=== PATIENT | female | born 1975 | race Two or more races ===

== ENCOUNTER 2025-06-21 09:55 | Inpatient (IN) | payer MEDICAID, OTHER ==
[~2025-06-21] VITALS: Ht 149.9 cm; Wt 92.0 kg
[2025-06-21] VITALS (7 sets, daily range): BP systolic 104–135; BP diastolic 59–83; PULSE 66–97; RESP 18–20; TEMP 97.9–98.2; O2SAT 96–97
--- NOTE | 2025-06-21 10:06 | ECG ---
[facility] Test Date: 2025-06-21 Test Time: 10:04:10 Pat Name: EBENEZER DONATO Department: Room: 0280T Gender: F Operating Room Surgical Technologist: PENELOPE : 1975 Requested By: CARROL QUISPE Order Number: [id number] Reading MD: Ovidio Espino Measurements Intervals [place] Rate: 92 P: 62 FL: 135 QRS: 90 QRSD: 85 T: 16 QT: 346 QTc: 429 Interpretive Statements Sinus rhythm Probable left atrial enlargement Borderline right axis deviation Electronically Signed On 06-25-2025 10:53:31 PST by Ovidio Espino Please click the below link to view image of tracing.
[2025-06-21 10:23] LABS: Hematocrit 41.7 % (36.0-46.0); Hemoglobin 14.0 g/dL (12.2-16.2); Mean Corpuscular Hemoglobin 28.7 pg (28.0-32.0); Mean Corpuscular Volume 85.3 fL (80.0-100.0); Nucleated Red Blood Cells % 0.1 %
--- NOTE | 2025-06-21 10:25 | ED.PDOC ---
HPI Comments 50 y/o F, with PMHx of thyroid disease, HLD, and GERD presents to the ED for CC of chest pain. Patient states, she has been experiencing left-sided chest pain that radiates to her neck and back x1day. Patient describes chest pain to be "sharp" in nature and worsening with inspiration. Patient denies shortness of breath, palpitations, flu-like symptoms, dizziness, or headache. No other symptoms or modifying factors are present at this time. Chief Complaint: Chest Pain Time Seen by MD: 10:05 Reviewed Notes: Nurses Notes, Medications, Allergies Allergies: Coded Allergies: NO KNOWN ALLERGIES (Unverified , 06/21/25) Information Source: Patient Mode of Arrival: Ambulatory Severity: Moderate Timing: Days Duration: Since onset Prehospital treatment: None Location: Chest (L) Radiation: Back, Neck Quality: Sharp Onset: At Rest Cardiac Risk Factors: Smoker PE Risk Factors: None History of: None Modifying Factors: Nothing Associated Signs and Symptoms: None Past Medical History PAST MEDICAL HISTORY: Denies Surgical History: Denies all surgeries SUPERVISOR TELEPHONE INFORMATION History: Denies all SUPERVISOR TELEPHONE INFORMATION Hx Family History Family History: Unknown Social History Smoker: Cigar Alcohol: Denies ETOH Use Drugs: Denies Drug Use Lives In: Home Constitutional: denies: chills, diaphoresis, fatigue, fever, malaise, sweats, weakness, others EENTM: denies: blurred vision, double vision, ear bleeding, ear discharge, ear drainage, ear pain, ear ringing, eye pain, eye redness, hearing loss, mouth pain, mouth swelling, nasal discharge, nose bleeding, nose congestion, nose pain, photophobia, tearing, throat pain, throat swelling, voice changes, others Respiratory: denies: cough, hemoptysis, orthopnea, SOB at rest, shortness of breath, SOB with excertion, stridor, wheezing, others Cardiovascular: reports: chest pain; denies: dizzy spells, diaphoresis, Dyspnea on exertion, edema, irregular heart beat, left arm pain, lightheadedness, palpitations, PND, syncope, others Gastrointestinal: denies: abdomen distended, abdominal pain, blood streaked bowels, constipated, diarrhea, dysphagia, difficulty swallowing, hematemesis, melena, nausea, poor appetite, poor fluid intake, rectal bleeding, rectal pain, vomiting, others Genitourinary: denies: abnormal vagina bleeding, burning, dyspareunia, dysuria, flank pain, frequency, hematuria, incontinence, pain, , vagina discharge, urgency, others Neurological: denies: dizziness, fainting, headache, left sided numbness, left sided weakness, numbness, paresthesia, pre-existing deficit, right sided numbness, right sided weakness, seizure, speech problems, tingling, tremors, weakness, others Musculoskeletal: denies: back pain, gout, joint pain, joint swelling, muscle pain, muscle stiffness, neck pain, others Integumetry: denies: bruises, change in color, change in hair/nails, dryness, laceration, lesions, lumps, rash, wounds, others Allergic/Immunocompromised: denies: Difficulty Healing, Frequent Infections, Hives, Itching, others Hematologic/Lymphatic: denies: anemia, blood clots, easy bleeding, easy bruising, swollen glands, others Endocrine: denies: excessive hunger, excessive sweating, excessive thirst, excessive urination, flushing, intolerance to cold, intolerance to heat, unexplained weight gain, unexplained weight loss, others Psychiatric: denies: anxiety, bipolar disorder, depression, hopeless, panic disorder, schizophrenia, sleepless, suicidal, others All Other Systems: Reviewed and Negative Physical Exam General Appearance: Moderate Distress HEENT: Normal ENT Inspection, Pharynx Normal, TMs Normal Neck: Full Range of Motion, Non-Tender, Normal, Normal Inspection Respiratory: Chest Non-Tender, Lungs Clear, No Accessory Muscle Use, No Respiratory Distress, Normal Breath Sounds Cardiovascular: No Edema, No JVD, No Murmur, No Gallop, Normal Peripheral Pulses, Regular Rate/Rhythm Breast Exam: Deferred Gastrointestinal: No Organomegaly, Non Tender, No Pulsatile Mass, Normal Bowel Sounds, Soft Genitalia: Deferred Pelvic: Deferred Rectal: Deferred Extremities: No calf tenderness, Normal capillary refill, Normal inspection, Normal range of motion, Non-tender, No pedal edema Musculoskeletal : Apperance: Normal Neurologic: Alert, mineral surveyor II-XII nml as Tested, Motor Weakness, Normal Affect, Normal Mood, No Sensory Deficits Cerebellar Function: Normal Reflexes: Normal Skin: Dry, Normal Color, Warm Lymphatic: No Adenopathy EKG EKG : Pulse Rate (adult): 92 [place]: RAD Cardiac Rhythm: NSR Block: None Hypertrophy: LAE ST: Normal Was a procedure done? Was a procedure done?: No CP Differential Dx Differential Diagnosis: Angina Differential Diagnosis: HTN Essential, HTN Accelerated Differential Diagnosis: Chest Wall Pain, Costochondritis, Esophageal reflux/spasm, Gastritis X-Ray, Labs, Meds, VS Vital Signs Date Time Temp Pulse Resp B/P (MAP) Pulse Ox O2 Delivery O2 Flow Rate FiO2 06/21/25 11:41 101 06/21/25 11:16 99 Room Air* 0 21 06/21/25 11:11 98.6 81 17 162/98 (119) 98 98.6 06/21/25 10:50 82 06/21/25 10:25 92 06/21/25 10:04 92 06/21/25 09:56 98.2 96 16 124/75 99 98.2 Lab Test 06/21/25 11:02 06/21/25 10:08 Range/Units Troponin I High Sensitivity < 3 L < 3 L </=34 ng/L White Blood Count 10.6 4.4-10.8 10^3/uL Red Blood Count 4.89 4.0-5.20 10^6/uL Hemoglobin 14.0 12.2-16.2 g/dL Hematocrit 41.7 36.0-46.0 % Mean Corpuscular Volume 85.3 80.0-100.0 fL Mean Corpuscular Hemoglobin 28.7 28.0-32.0 pg Mean Corpuscular Hemoglobin Concent 33.7 32.0-36.0 g/dL Red Cell Distribution Width 14.9 H 11.8-14.3 % Platelet Count 270 140-450 10^3/uL Mean Platelet Volume 9.7 6.9-10.8 fL Neutrophils (%) (Auto) 48.8 37.0-80.0 % Lymphocytes (%) (Auto) 46.6 10.0-50.0 % Monocytes (%) (Auto) 3.4 0.0-12.0 % Eosinophils (%) (Auto) 0.8 0.0-7.0 % Basophils (%) (Auto) 0.4 0.0-2.0 % Neutrophils # (Auto) 5.2 1.6-8.6 10 ^3/uL Lymphocytes # (Auto) 5.0 0.4-5.4 10 ^3/uL Monocytes # (Auto) 0.4 0-1.3 10 ^3/uL Eosinophils # (Auto) 0.1 0-0.8 10 ^3/uL Basophils # (Auto) 0 0-0.2 10 ^3/uL Nucleated Red Blood Cells 0.1 % Sodium Level 139 136-145 mmol/L Potassium Level 3.9 3.5-5.1 mmol/L Chloride Level 103 98-107 mmol/L Carbon Dioxide Level 26 20-31 mmol/L Anion Gap 10 5-15 Blood Urea Nitrogen 15 9-23 mg/dL Creatinine 0.72 0.550-1.02 mg/dL Glomerular Filtration Rate Calc 101 >90 mL/min BUN/Creatinine Ratio 20.8 H 10.0-20.0 Serum Glucose 114 H 74-106 mg/dL Calcium Level 9.8 8.7-10.4 mg/dL Current Medications Medications (Trade) Dose Ordered Sig/Ana Route Start Time Stop Time Status Last Admin Aspirin 162 mg ONCE ONCE PO 06/21/25 10:15 06/21/25 10:16 DC 06/21/25 10:15 [place] [id number] Ph: [phone] DIAGNOSTIC IMAGING Diagnostic Imaging Report : [id number] Signed PATIENT: AMBROCIO DONATOMACCT: [id number] UNIT: [id number] : 1975 LOC: ER ROOM / BED: / AGE / SEX: 50 / F ADM STATUS: REG ER SERVICE 1008 ORDERING PHYSICIAN: CARROL QUISPE MD PROCEDURE(s): CXRP - CHEST PORTABLE REASON: CP ORDER NUMBER(s): [id number], ACCESSION NUMBER(s): [id number] CHEST RADIOGRAPH Indication: CP Technique: XY CHEST PORTABLE Comparison: None FINDINGS: The cardiac silhouette is unremarkable. The lungs demonstrate no pulmonary air space consolidation. The pulmonary vasculature is prominent. Aortic atherosclerotic disease. There is no pleural effusion. There is no pneumothorax. IMPRESSION: Mild pulmonary vascular congestion. ATED BY: SHANTA ZUÑIGA MD DICTATED DATE/TIME: 06/21/25 1048 SIGNED BY: SHANTA ZUÑGIA MD SIGNED DATE/TIME: 06/21/25 1048 CC: IV Hep-Lock was established. The patient is being given Lasix 40 mg IV push The patient is still having chest pain so was given morphine 4 mg IV push for the pain The patient was given Zofran 4 mg IV push The CBC and chemistry panel is within normal limits. The troponin level is negative The 2nd troponin level is also negative The patient also received aspirin 162 mg by mouth At this time, the patient will be admitted to the hospitalist Images Reviewed?: Images reviewed and evaluated by me Time of 1ST Reevaluation: 10:35 Reevaluation 1ST: Unchanged Patient Education/Counseling: Diagnosis, Treatment Family Education/Counseling: No Family Present SEPSIS Sepsis Screen Date sepsis recognized/suspect: Jun 21, 2025 Time Sepsis recognized/suspect: 999 Recent Procedure: No On Antibiotic Therapy: No Respiratory Rate >20: No Heart Rate >90: Yes Temp<36 C (96.8 F) or >38.3 C: No SBP <90 or MAP <65 mmHG: No New Acute Mental Status Change: No Is the patient on CPAP, BIPAP,: No Physician Orders Chest Portable (06/21/25 10:08) Troponin-I Hs (06/21/25 13:01) Electrocardigram (06/21/25 13:01) Urinalysis (06/21/25 11:28) Morphine Sulfate Injection (06/21/25 12:00) Ondansetron Hcl (Zofran) (06/21/25 12:00) Vital Signs Date Time Temp Pulse Resp B/P (MAP) Pulse Ox O2 Delivery O2 Flow Rate FiO2 06/21/25 11:41 101 06/21/25 11:16 99 Room Air* 0 21 06/21/25 11:11 98.6 81 17 162/98 (119) 98 98.6 06/21/25 10:50 82 06/21/25 10:25 92 06/21/25 10:04 92 06/21/25 09:56 98.2 96 16 124/75 99 98.2 Laboratory Tests Test 06/21/25 10:08 White Blood Count 10.6 10^3/uL (4.4-10.8) Medications Medications Dose Ordered Sig/Ana Route Start Time Stop Time Status Last Admin Dose Admin Aspirin 162 mg ONCE ONCE PO 06/21/25 10:15 11/6/25 10:16 DC 06/21/25 10:15 Departure 1 Departure Time of Disposition: 11:54 Impression: Primary Impression: Acute on chronic diastolic heart failure Additional Impression: Acute myocardial ischemia Disposition: 09 ADMITTED INPATIENT Admit to: Tele Condition: Fair Critical Care Note Critical Care Time?: Yes (45 min-critical care time only) Stability Stability form required: Yes Unstable for transfer: Telemetry monitoring (Telemetry monitoring required), ED Physician Assesment (Clinical assesment) Heart Score Heart Score: Heart Score Response (Comments) Value History Moderate Suspicious [address]-Deviation 2 Age 45-64 1 Risk Factors 1 or 2 risk factors 1 Troponin Normal limit 0 Total 5 I personally scribed for CHRISTINA BROWN MD ([email or web address]) on 06/21/25 at 10:25. Electronically submitted by Geovanna Oneill ([email or web address]). I personally scribed for CHRISTINA BROWN MD ([email or web address]) on 06/21/25 at 11:02. Electronically submitted by Geovanna Oneill ([email or web address]). CHRISTINA BROWN MD Jun 21, 2025 10:25
--- NOTE | 2025-06-21 10:47 | DVH ---
CHEST RADIOGRAPH Indication: CP Technique: XY CHEST PORTABLE Comparison: None FINDINGS: The cardiac silhouette is unremarkable. The lungs demonstrate no pulmonary airspace consolidation. The pulmonary vasculature is prominent. Aortic atherosclerotic disease. There is no pleural effusion. There is no pneumothorax. IMPRESSION: Mild pulmonary vascular congestion.
[2025-06-21 10:50] LABS: Chloride 103 mmol/L (98-107); Potassium 3.9 mmol/L (3.5-5.1); Sodium 139 mmol/L (136-145)
[2025-06-21 10:51] LABS: Anion Gap 10 (5-15); Carbon Dioxide 26 mmol/L (20-31)
[2025-06-21 10:52] LABS: Calcium 9.8 mg/dL (8.7-10.4)
[2025-06-21 10:57] LABS: BUN/Creatinine Ratio 20.8 (10.0-20.0); Blood Urea Nitrogen 15 mg/dL (9-23)
[2025-06-21 10:59] LABS: Glucose 114 mg/dL (74-106)
--- NOTE | 2025-06-21 11:27 | ECG ---
[facility] Test Date: 2025-06-21 Test Time: 10:46:51 Pat Name: EBENEZER DONATO Department: Room: 0280T Gender: F Refrigerating Technician: JILLIAN : 1975 Requested By: CARROL QUISPE Order Number: [id number] Reading MD: Ovidio Espino Measurements Intervals [place] Rate: 82 P: 59 AL: 137 QRS: 85 QRSD: 84 T: 22 QT: 351 QTc: 410 Interpretive Statements Sinus rhythm Probable left atrial enlargement ST elev, probable normal early repol pattern Electronically Signed On 06-25-2025 10:53:51 PST by Ovidio Espino Please click the below link to view image of tracing.
[2025-06-21] MEDS: ONDANSETRON HCL 4 MG/2 ML VIAL IV ONE (11:57)
[2025-06-21] MEDS: MORPHINE SULFATE 4 MG/ML SYR/VIAL IV ONE (11:58)
[2025-06-21 12:40] LABS: Urine Protein, UAD Negative (Negative)
[2025-06-21] MEDS ORDERED: NITROGLYCERIN 0.4 MG SL TAB SL PRN ×2 (12:45)
[2025-06-21] MEDS ORDERED: MORPHINE SULFATE INJ 2 MG/ml SYRG IV PRN (12:45)
[2025-06-21] MEDS ORDERED: MORPHINE SULFATE 4 MG/ML SYR/VIAL IV PRN (12:45)
[2025-06-21] MEDS ORDERED: ONDANSETRON HCL 4 MG/2 ML VIAL IV PRN (12:45)
--- NOTE | 2025-06-21 12:49 | DVHHP2 ---
History of Present Illness Reason for Visit: Chest pain History of Present Illness Sheron Larios is a 50-year-old female with past medical history of hypothyroidism, hyperlipidemia, psoriasis, , and GERD who presents to the ED with chest pain that started yesterday around 1:00 a.m. patient states that the pain is 10/10 sharp and intermittent radiating to her left shoulder. She reports that the pain woke her up from her sleep. Patient also reports that her granddaughter has been sick with a cold recently. Patient reports that she lives at home with family Patient denies any recent trauma or injury, recent travels, recent ingestion of spoiled food, shortness of breath, fever, chills, lightheadedness, weakness, dizziness, abdominal pain, nausea, vomiting, diarrhea, or urinary symptoms. Cardiovascular: hyperipidemia Endocrine: Hypothyroidism Past Medical History Psoriasis Past Surgical History: Family History: None Smoke: <1 pack per day ALCOHOL: none Drugs: None Lives: with Family Domestic Violence: Neg Review of Systems Cardiovascular: Chest Pain Allergies: Coded Allergies: NO KNOWN ALLERGIES (Unverified , 06/21/25) Exam Vital Signs Vital Signs Date Time Temp Pulse Resp B/P (MAP) Pulse Ox O2 Delivery O2 Flow Rate FiO2 06/21/25 12:00 69 06/21/25 11:58 18 155/70 06/21/25 11:16 99 Room Air* 0 21 06/21/25 11:11 98.6 98.6 General Appearance: Alert, Oriented X3, Cooperative, No acute distress HEENT: Atraumatic, PERRLA, EOMI, Mucous membr. moist/pink Respiratory: Clear to auscultation, Normal air movement Cardiovascular: Normal S1, Normal S2, No murmurs Abdominal: Normal bowel sounds, Soft Extremities: No clubbing, No cyanosis, No edema, Normal pulses Neuro: Normal speech, Strength at 5/5 X4 ext, Normal tone, Sensation intact Psych/Mental Status: Mental status NL, Mood NL Labs/Xrays Labs Test 06/21/25 11:26 06/21/25 11:02 06/21/25 10:08 Range/Units Troponin I High Sensitivity < 3 L </=34 ng/L White Blood Count 10.6 4.4-10.8 10^3/uL Red Blood Count 4.89 4.0-5.20 10^6/uL Hemoglobin 14.0 12.2-16.2 g/dL Hematocrit 41.7 36.0-46.0 % Mean Corpuscular Volume 85.3 80.0-100.0 fL Mean Corpuscular Hemoglobin 28.7 28.0-32.0 pg Mean Corpuscular Hemoglobin Concent 33.7 32.0-36.0 g/dL Red Cell Distribution Width 14.9 H 11.8-14.3 % Platelet Count 270 140-450 10^3/uL Mean Platelet Volume 9.7 6.9-10.8 fL Neutrophils (%) (Auto) 48.8 37.0-80.0 % Lymphocytes (%) (Auto) 46.6 10.0-50.0 % Monocytes (%) (Auto) 3.4 0.0-12.0 % Eosinophils (%) (Auto) 0.8 0.0-7.0 % Basophils (%) (Auto) 0.4 0.0-2.0 % Neutrophils # (Auto) 5.2 1.6-8.6 10 ^3/uL Lymphocytes # (Auto) 5.0 0.4-5.4 10 ^3/uL Monocytes # (Auto) 0.4 0-1.3 10 ^3/uL Eosinophils # (Auto) 0.1 0-0.8 10 ^3/uL Basophils # (Auto) 0 0-0.2 10 ^3/uL Nucleated Red Blood Cells 0.1 % Sodium Level 139 136-145 mmol/L Potassium Level 3.9 3.5-5.1 mmol/L Chloride Level 103 98-107 mmol/L Carbon Dioxide Level 26 20-31 mmol/L Anion Gap 10 5-15 Blood Urea Nitrogen 15 9-23 mg/dL Creatinine 0.72 0.550-1.02 mg/dL Glomerular Filtration Rate Calc 101 >90 mL/min BUN/Creatinine Ratio 20.8 H 10.0-20.0 Serum Glucose 114 H 74-106 mg/dL Calcium Level 9.8 8.7-10.4 mg/dL CHEST RADIOGRAPH Indication: CP Technique: XY CHEST PORTABLE Comparison: None FINDINGS: The cardiac silhouette is unremarkable. The lungs demonstrate no pulmonary airspace consolidation. The pulmonary vasculature is prominent. Aortic atherosclerotic disease. There is no pleural effusion. There is no pneumothorax. IMPRESSION: Mild pulmonary vascular congestion. SEPSIS Sepsis Screen Date sepsis recognized/suspect: Jun 21, 2025 Time Sepsis recognized/suspect: 1000 Recent Procedure: No On Antibiotic Therapy: No Respiratory Rate >20: No Heart Rate >90: Yes Temp<36 C (96.8 F) or >38.3 C: No SBP <90 or MAP <65 mmHG: No New Acute Mental Status Change: No Is the patient on CPAP, BIPAP,: No Physician Orders Chest Portable (06/21/25 10:08) Troponin-I Hs (06/21/25 13:01) Electrocardigram (06/21/25 13:01) Urinalysis (06/21/25 11:28) Furosemide Injection (Lasix Injection) (06/21/25 12:00) Vital Signs Date Time Temp Pulse Resp B/P (MAP) Pulse Ox O2 Delivery O2 Flow Rate FiO2 06/21/25 12:00 69 06/21/25 11:58 73 18 155/70 06/21/25 11:41 101 06/21/25 11:16 99 Room Air* 0 21 06/21/25 11:11 98.6 81 17 162/98 (119) 98 98.6 06/21/25 10:50 82 06/21/25 10:25 92 06/21/25 10:04 92 06/21/25 09:56 98.2 96 16 124/75 99 98.2 Laboratory Tests Test 06/21/25 10:08 White Blood Count 10.6 10^3/uL (4.4-10.8) Medications Medications Dose Ordered Sig/Ana Route Start Time Stop Time Status Last Admin Dose Admin Aspirin 162 mg ONCE ONCE PO 06/21/25 10:15 06/21/25 10:16 DC 06/21/25 10:15 162 MG Morphine Sulfate 4 mg ONCE ONCE IV 06/21/25 12:00 06/21/25 12:01 DC 06/21/25 11:58 4 MG Ondansetron HCl 4 mg ONCE ONCE IV 06/21/25 12:00 06/21/25 12:01 DC 06/21/25 11:57 4 MG Assessment/Plan Assessment/Plan Assessment Chest pain rule out ACS Tobacco use History of hypothyroidism History of hyperlipidemia History of GERD History of psoriasis History of Plan Admit to tele Aspirin + statin Antiemetics Pain management EKG Troponin noted Chest x-ray UA UDS Echo ordered Diet Home medications reconciled DVT prophylaxis-SCDs PUD prophylaxis-PPIs Discussed plan of care with patient and nurse Counseled patient on cessation of tobacco use 14404 Behavior change smoking greater than 10 minutes about use of other options also gave option of nicotine patch 50354 Preventive counseling healthy eating habits, physical activity, and regular checkups Plan discussed with: Patient Date of Service: Jun 21, 2025 Billing Provider: TROY AHN Common Visit Codes: 03637-[id number] INP/OBS CARE (HIGH) Secondary Visit Codes: 74409-[id number] COUNSELING IND, 06496-LYHNT CHNG SMOKING >10MIN TROY AHN Jun 21, 2025 12:49
[2025-06-21] MEDS: FUROSEMIDE 40 MG/4 ML VIAL IV ONE (13:21)
[2025-06-21 13:52] LABS: Amphetamine Screen, Urine Neg (NEGATIVE); Barbiturate Scree,Urine Neg (NEGATIVE); Benzodiazephine Screen, Urine Neg (NEGATIVE); Cannabinoid Screen, Urine Neg (NEGATIVE); Cocaine Screen, Urine Neg (NEGATIVE); Opiate Scree,Urine Neg (NEGATIVE); Phencyclidine Screen, Urine Neg (NEGATIVE)
[2025-06-21] MEDS ORDERED: PANT40T PO (14:24)
[2025-06-21] MEDS ORDERED: ATOR20TA50 (14:24)
[2025-06-21] MEDS ORDERED: LEVO100T8 PO (14:24)
[2025-06-21] MEDS ORDERED: APRE30TA PO (14:24)
--- NOTE | 2025-06-21 15:40 | ECG ---
[facility] Test Date: 2025-06-21 Test Time: 12:59:11 Pat Name: EBENEZER DONATO Department: [facility] ED Patient ID: [facility]-[id number] Room: [facility]0T A Gender: F Coil Winding Supervisor: JILLIAN : 1975 Requested By: CARROL QUISPE Order Number: [id number] Reading MD: Ovidio Espino Measurements Intervals [place] Rate: 61 P: 34 NM: 143 QRS: 75 QRSD: 91 T: 6 QT: 410 QTc: 413 Interpretive Statements Sinus rhythm ST elev, probable normal early repol pattern Electronically Signed On 06-25-2025 10:54:02 PST by Ovidio Espino Please click the below link to view image of tracing.
[2025-06-21] MEDS: HYDROcodone-ACET 5/325MG TAB PO PRN (16:41)
[2025-06-21] MEDS: ATORVASTATIN 20 MG TAB PO SCH (21:59)
[2025-06-21] MEDS: APREMILAST BASE 30 MG PO SCH (22:00)
[2025-06-22] VITALS (9 sets, daily range): BP systolic 100–156; BP diastolic 61–109; PULSE 59–78; RESP 16–18; TEMP 97.5–97.9; O2SAT 96–99
[2025-06-22] MEDS: LEVOTHYROXINE SODIUM 100 MCG TAB PO SCH (06:24)
[2025-06-22 07:47] LABS: Hematocrit 38.2 % (36.0-46.0); Hemoglobin 12.7 g/dL (12.2-16.2); Mean Corpuscular Hemoglobin 28.7 pg (28.0-32.0); Mean Corpuscular Volume 86.0 fL (80.0-100.0); Nucleated Red Blood Cells % 0.2 %
[2025-06-22 07:58] LABS: Chloride 100 mmol/L (98-107); Potassium 3.7 mmol/L (3.5-5.1); Sodium 137 mmol/L (136-145)
[2025-06-22 07:59] LABS: Calcium 9.4 mg/dL (8.7-10.4)
[2025-06-22 08:02] LABS: Anion Gap 10 (5-15); Carbon Dioxide 27 mmol/L (20-31)
[2025-06-22 08:04] LABS: BUN/Creatinine Ratio 18.2 (10.0-20.0); Blood Urea Nitrogen 16 mg/dL (9-23); Magnesium 1.9 mg/dL (1.6-2.6); Triglycerides 111 mg/dL (< 150)
[2025-06-22 08:05] LABS: Cholesterol 159 mg/dL (< 200); Glucose 114 mg/dL (74-106); HDL Cholesterol 53 mg/dL (40-59)
[2025-06-22] MEDS ORDERED: ATORVASTATIN 20 MG TAB PO SCH (10:00)
[2025-06-22] MEDS: PANTOPRAZOLE 40 MG TAB PO SCH (10:15)
[2025-06-22 10:54] LABS: Hepatitis B Surface Antigen Negative (Negative)
[2025-06-22 11:23] LABS: Hepatitis C Antibody Negative (Negative)
[2025-06-22] MEDS: ACETAMINOPHEN 325 MG TAB PO PRN (15:57)
--- NOTE | 2025-06-22 16:22 | DVHDS2 ---
Discharge Summary Date of Admission Jun 21, 2025 at 12:42 Date of Discharge: Jun 22, 2025 Labs/Diagnostic Data: Laboratory Results Test 06/22/25 06:10 06/21/25 17:21 06/21/25 11:26 06/21/25 11:02 White Blood Count 8.1 10^3/uL (4.4-10.8) Red Blood Count 4.44 10^6/uL (4.0-5.20) Hemoglobin 12.7 g/dL (12.2-16.2) Hematocrit 38.2 % (36.0-46.0) Mean Corpuscular Volume 86.0 fL (80.0-100.0) Mean Corpuscular Hemoglobin 28.7 pg (28.0-32.0) Mean Corpuscular Hemoglobin Concent 33.3 g/dL (32.0-36.0) Red Cell Distribution Width 14.8 % (11.8-14.3) Platelet Count 245 10^3/uL (140-450) Mean Platelet Volume 10.1 fL (6.9-10.8) Neutrophils (%) (Auto) 39.6 % (37.0-80.0) Lymphocytes (%) (Auto) 53.6 % (10.0-50.0) Monocytes (%) (Auto) 5.1 % (0.0-12.0) Eosinophils (%) (Auto) 1.1 % (0.0-7.0) Basophils (%) (Auto) 0.6 % (0.0-2.0) Neutrophils # (Auto) 3.2 10 ^3/uL (1.6-8.6) Lymphocytes # (Auto) 4.3 10 ^3/uL (0.4-5.4) Monocytes # (Auto) 0.4 10 ^3/uL (0-1.3) Eosinophils # (Auto) 0.1 10 ^3/uL (0-0.8) Basophils # (Auto) 0.1 10 ^3/uL (0-0.2) Nucleated Red Blood Cells 0.2 % Sodium Level 137 mmol/L (136-145) Potassium Level 3.7 mmol/L (3.5-5.1) Chloride Level 100 mmol/L (98-107) Carbon Dioxide Level 27 mmol/L (20-31) Anion Gap 10 (5-15) Blood Urea Nitrogen 16 mg/dL (9-23) Creatinine 0.88 mg/dL (0.550-1.02) Glomerular Filtration Rate Calc 79 mL/min (>90) BUN/Creatinine Ratio 18.2 (10.0-20.0) Serum Glucose 114 mg/dL (74-106) Calcium Level 9.4 mg/dL (8.7-10.4) Magnesium Level 1.9 mg/dL (1.6-2.6) Troponin I High Sensitivity < 3 ng/L (</=34) Triglycerides Level 111 mg/dL (< 150) Cholesterol Level 159 mg/dL (< 200) LDL Cholesterol 89 mg/dL (< 100) HDL Cholesterol 53 mg/dL (40-59) Hepatitis B Surface Antigen Negative (Negative) Hepatitis C Antibody Negative (Negative) Urine Color Light-yellow (Yellow) Urine Clarity Clear (Clear) Urine pH 6.5 (5.0-9.0) Urine Specific [employer] [place] 1.011 (1.001-1.035) Urine Protein Negative (Negative) Urine Ketones Negative (Negative) Urine Blood Negative /uL (Negative) Urine Nitrite Negative (Negative) Urine Bilirubin Negative (Negative) Urine Urobilinogen Normal mg/dL (Negative) Urine Leukocyte Esterase Negative /uL (Negative) Urine RBC 1 /hpf (0 - 4) Urine Microscopic WBC 1 /HPF (0-5) Urine Squamous Epithelial Cells Few /hpf (<5) Urine Bacteria None seen /hpf (None Seen) Urine Glucose Normal mg/dL (Normal) Urine Opiates Screen Neg (NEGATIVE) Urine Fentanyl Screen Neg (NEGATIVE) Urine Barbiturates Screen Neg (NEGATIVE) Urine Phencyclidine Screen Neg (NEGATIVE) Urine Amphetamines Screen Neg (NEGATIVE) Urine Benzodiazepines Screen Neg (NEGATIVE) Urine Cocaine Screen Neg (NEGATIVE) Urine Cannabinoids Screen Neg (NEGATIVE) Thyroid Stimulating Hormone (TSH) 0.68 uIU/mL (0.55-4.78) Test 06/21/25 10:08 Hemoglobin A1c 5.8 % A1C (<5.7) Free Thyroxine (T4) Calculated 1.41 ng/dL (0.89-1.76) Other Laboratory Tests 06/22/25 06:10 Brief Hx & Hospital Course: 50-year-old female with a known history of hypertension, hypothyroidism, GERD, chronic tobacco use disorder initially presented to the hospital with the chest pain patient was found to have normal troponin. Twelve lead EKG shows no acute STT wave changes. Patient's 2D echo was done once echo is unremarkable patient can be discharged home with a close follow up as an outpatient with the PCP and Cardiology if needed. Condition at Discharge: Stable Final Diagnosis/Problems List Chest pain RI ruled out Dyslipidemia Hypothyroidism Morbid obesity clossII Discharge Disposition: Home SNF Discharge Will this Physician continue t: No Discharge Instruct/Medications Diet: Cardiac 2g Na,low cholest Activity: No Restrictions, As Tolerated Follow Up/Referral: Please follow up with the PCP and Cardiology upon discharge in 1-2 weeks. Medications: Resume home medications. Continued Medications: Apremilast Base (Otezla) 30 Mg Tab 1 TAB PO BID Atorvastatin Calcium (Atorvastatin Calcium) 20 Mg Tab Levothyroxine Sodium (Levothyroxine Sodium) 100 Mcg Tab 1 TAB PO QAM Pantoprazole Sodium Sesquihydr (Pantoprazole Sodium) 40 Mg Tab 1 TAB PO DAILY Scheduled Apremilast Base (Otezla), 1 TAB PO BID, (Reported) Levothyroxine Sodium (Levothyroxine Sodium), 1 TAB PO QAM, (Reported) Pantoprazole Sodium Sesquihydr (Pantoprazole Sodium), 1 TAB PO DAILY, (Reported) Miscellaneous Medications Atorvastatin Calcium (Atorvastatin Calcium), (Reported) Discharge Statement: "Patient was advised to return to the ER or call 911 if any headaches, dizziness, shortness of breath, chest pain, abdominal pain, bleeding, fevers, or worsening of medical condition. Patient was counseled about treatment plan, medications, possible side effects, patientverbalized understanding. All questions were answered to the best of my ability. This discharge took greater then 30 minutes in planning, reviewing documentation, counseling the patient, and discussing with other team members." ASSESSMENT ASSESSMENT Assessment Chest pain RI ruled out Dyslipidemia Hypothyroidism Morbid obesity clossII Date of Service: Jun 22, 2025 Billing Provider: TREVER SOL MD Common Visit Codes: 59682-BXV/OBS DISCH DAY >30min TREVER SOL MD Jun 22, 2025 16:22
[2025-06-23] VITALS (7 sets, daily range): BP systolic 109–129; BP diastolic 64–80; PULSE 60–84; RESP 16–18; TEMP 97.3–98.8; O2SAT 95–97
--- NOTE | 2025-06-23 18:14 | DVHPN2 ---
Subjective Patient denies any chest pain 2D echo is pending results. 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 Current Medications Medications Dose Ordered Sig/Ana Route Start Time Stop Time Status Last Admin Dose Admin Aspirin 81 mg DAILY PO 06/22/25 10:00 06/23/25 11:14 81 MG Atorvastatin Calcium 40 mg HS PO 06/21/25 22:00 06/23/25 11:14 40 MG Acetaminophen 650 mg Q6HP PRN PO 06/21/25 12:45 06/22/25 15:57 650 MG Ondansetron HCl 4 mg Q4HP PRN IV 06/21/25 12:45 Nitroglycerin 0.4 mg Q5MINP PRN SL 06/21/25 12:45 Morphine Sulfate 2 mg Q30M PRN IV 06/21/25 12:45 Levothyroxine Sodium 100 mcg QAM PO 06/22/25 07:00 06/23/25 07:01 100 MCG Pantoprazole Sodium 40 mg DAILY PO 06/22/25 10:00 06/23/25 11:14 40 MG Patient Own Medication 1 tab BID PO 06/21/25 22:00 06/22/25 21:11 1 TAB Acetaminophen/ Hydrocodone Bitart 1 tab Q4HPRN PRN PO 06/21/25 16:30 06/22/25 21:10 1 TAB Laboratory Results Laboratory Tests 06/22/25 06:10 Urinalysis Test 06/21/25 11:26 Urine Color Light-yellow (Yellow) Urine Clarity Clear (Clear) Urine pH 6.5 (5.0-9.0) Urine Specific [place] 1.011 (1.001-1.035) Urine Protein Negative (Negative) Urine Ketones Negative (Negative) Urine Blood Negative /uL (Negative) Urine Nitrite Negative (Negative) Urine Bilirubin Negative (Negative) Urine Urobilinogen Normal mg/dL (Negative) Urine Leukocyte Esterase Negative /uL (Negative) Urine RBC 1 /hpf (0 - 4) Urine Microscopic WBC 1 /HPF (0-5) Urine Squamous Epithelial Cells Few /hpf (<5) Urine Bacteria None seen /hpf (None Seen) Urine Glucose Normal mg/dL (Normal) Assessment/Plan Assessment/Plan 50-year-old female with a known history of hypertension, dyslipidemia, GERD, hypothyroidism initially admitted to the hospital with the chest pain found to have 1. Chest pain rule out acute [place] 2. Hypertension 3. Hypothyroidism 4. GERD 5. Chronic tobacco use disorder -patient's tropes are negative, patient is chest pain free, follow up 2D echo , if echo is unremarkable patient can be discharged. Plan discussed with: Patient Date of Service: Jun 23, 2025 Billing Provider: TREVER SOL MD Common Visit Codes: [id number] INP/OBS CARE(HIGH) TREVER SOL MD Jun 23, 2025 18:14
[2025-06-24] VITALS (8 sets, daily range): BP systolic 102–129; BP diastolic 50–75; PULSE 61–81; RESP 16–18; TEMP 97.2–98.3; O2SAT 95–98
--- NOTE | 2025-06-24 17:07 | DVHPN2 ---
Subjective Patient denies any chest pain 2D echo is pending results. 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 Current Medications Medications Dose Ordered Sig/Ana Route Start Time Stop Time Status Last Admin Dose Admin Aspirin 81 mg DAILY PO 06/22/25 10:00 06/24/25 10:50 81 MG Atorvastatin Calcium 40 mg HS PO 06/21/25 22:00 06/23/25 11:14 40 MG Acetaminophen 650 mg Q6HP PRN PO 06/21/25 12:45 06/22/25 15:57 650 MG Ondansetron HCl 4 mg Q4HP PRN IV 06/21/25 12:45 Nitroglycerin 0.4 mg Q5MINP PRN SL 06/21/25 12:45 Morphine Sulfate 2 mg Q30M PRN IV 06/21/25 12:45 Levothyroxine Sodium 100 mcg QAM PO 06/22/25 07:00 06/24/25 06:39 100 MCG Pantoprazole Sodium 40 mg DAILY PO 06/22/25 10:00 06/24/25 10:50 40 MG Patient Own Medication 1 tab BID PO 06/21/25 22:00 06/22/25 21:11 1 TAB Acetaminophen/ Hydrocodone Bitart 1 tab Q4HPRN PRN PO 06/21/25 16:30 06/23/25 21:53 1 TAB Laboratory Results Laboratory Tests 06/22/25 06:10 Urinalysis Test 06/21/25 11:26 Urine Color Light-yellow (Yellow) Urine Clarity Clear (Clear) Urine pH 6.5 (5.0-9.0) Urine Specific [place] 1.011 (1.001-1.035) Urine Protein Negative (Negative) Urine Ketones Negative (Negative) Urine Blood Negative /uL (Negative) Urine Nitrite Negative (Negative) Urine Bilirubin Negative (Negative) Urine Urobilinogen Normal mg/dL (Negative) Urine Leukocyte Esterase Negative /uL (Negative) Urine RBC 1 /hpf (0 - 4) Urine Microscopic WBC 1 /HPF (0-5) Urine Squamous Epithelial Cells Few /hpf (<5) Urine Bacteria None seen /hpf (None Seen) Urine Glucose Normal mg/dL (Normal) Assessment/Plan Assessment/Plan 50-year-old female with a known history of hypertension, dyslipidemia, GERD, hypothyroidism initially admitted to the hospital with the chest pain found to have 1. Chest pain rule out acute [place] 2. Hypertension 3. Hypothyroidism 4. GERD 5. Chronic tobacco use disorder -patient's tropes are negative, patient is chest pain free, follow up 2D echo , if echo is unremarkable patient can be discharged. Plan discussed with: Patient Date of Service: Jun 24, 2025 Billing Provider: TREVER SOL MD Common Visit Codes: [id number] INP/OBS CARE(MOD) TREVER SOL MD Jun 24, 2025 17:07
[2025-06-25 01:00] VITALS: BP 110/54; PULSE 71; RESP 18; TEMP 99.2; O2SAT 100
[2025-06-25 05:00] VITALS: BP 112/57; PULSE 57; RESP 18; TEMP 97.8; O2SAT 97
[2025-06-25 08:00] VITALS: PULSE 70; PULSE 75; RESP 16; O2SAT 98
[2025-06-25] MEDS: ATORVASTATIN 20 MG TAB PO SCH (08:23)
[2025-06-25 09:00] VITALS: BP 134/102; PULSE 68; RESP 18; TEMP 98; O2SAT 97
--- NOTE | 2025-06-25 10:22 | DVHSR ---
APPROVED REPORT EXAM: Two-dimensional and M-mode echocardiogram with Doppler and color Doppler. Blood Pressure: 141/73 mmHg INDICATION Chest Pain RISK FACTORS Height: 50, Weight: 196 DIMENSIONS LVDd 4.7 (3.8-5.7cm) LA (2D) 3.9 (1.9-4.0cm) Aortic Root 3.2 (2.0-3.7cm) LVDs 3.0 (2.5-4.0cm) LA (MM) (1.9-4.0cm) Aortic Cusp Exc 1.9 (1.5-2.0cm) EF (%) 66.0 (55-70%) Rt. Atrium 4.3 (1.9-4.0cm) Asc. Aorta cm Mitral Valve Mitral Mitral Stenosis E wave 0.56m/s MV Mean GR. mmHg A wave 0.65m/s MV Peak GR. mmHg E/A ratio 0.9 2D MVA cm2 DECEL Time 233ms PRESS 1/2 Time 76ms IVRT ms Dop MVA 2.91cm2 Aortic Valve Aortic Valve Aortic Stenosis V1 1.27m/s AO Mean GR. 6mmHg V2 1.70m/s AO Peak GR. 12mmHg LVOT Diameter 2.0 (1.8-2.4cm) Doppler CIRO 2.35cm2 Pulmonic Valve V2 1.06m/s Tricuspid Valve TR Velocity 2.52m/s RVSP 31mmHg Conclusion lvef 65% normal rv function normal atria no severe valve abnormalities noted normal pericardium
[2025-06-25 13:00] VITALS: BP 112/67; PULSE 62; RESP 20; TEMP 98.5; O2SAT 97
--- NOTE | 2025-06-25 16:40 | DVHPN2 ---
Subjective Patient denies any chest pain 2D echo is unremarkable. 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 Current Medications Medications Dose Ordered Sig/Ana Route Start Time Stop Time Status Last Admin Dose Admin Aspirin 81 mg DAILY PO 06/22/25 10:00 06/25/25 08:22 81 MG Acetaminophen 650 mg Q6HP PRN PO 06/21/25 12:45 06/22/25 15:57 650 MG Ondansetron HCl 4 mg Q4HP PRN IV 06/21/25 12:45 Nitroglycerin 0.4 mg Q5MINP PRN SL 06/21/25 12:45 Morphine Sulfate 2 mg Q30M PRN IV 06/21/25 12:45 Levothyroxine Sodium 100 mcg QAM PO 06/22/25 07:00 06/25/25 06:37 100 MCG Pantoprazole Sodium 40 mg DAILY PO 06/22/25 10:00 06/25/25 08:23 40 MG Patient Own Medication 1 tab BID PO 06/21/25 22:00 06/25/25 11:00 1 TAB Acetaminophen/ Hydrocodone Bitart 1 tab Q4HPRN PRN PO 06/21/25 16:30 06/24/25 21:26 1 TAB Atorvastatin Calcium 40 mg DAILY PO 06/25/25 10:00 06/25/25 08:23 40 MG Laboratory Results Laboratory Tests 06/22/25 06:10 Urinalysis Test 06/21/25 11:26 Urine Color Light-yellow (Yellow) Urine Clarity Clear (Clear) Urine pH 6.5 (5.0-9.0) Urine Specific [place] 1.011 (1.001-1.035) Urine Protein Negative (Negative) Urine Ketones Negative (Negative) Urine Blood Negative /uL (Negative) Urine Nitrite Negative (Negative) Urine Bilirubin Negative (Negative) Urine Urobilinogen Normal mg/dL (Negative) Urine Leukocyte Esterase Negative /uL (Negative) Urine RBC 1 /hpf (0 - 4) Urine Microscopic WBC 1 /HPF (0-5) Urine Squamous Epithelial Cells Few /hpf (<5) Urine Bacteria None seen /hpf (None Seen) Urine Glucose Normal mg/dL (Normal) Assessment/Plan Assessment/Plan 50-year-old female with a known history of hypertension, dyslipidemia, GERD, hypothyroidism initially admitted to the hospital with the chest pain found to have 1. Chest pain rule out acute [place] 2. Hypertension 3. Hypothyroidism 4. GERD 5. Chronic tobacco use disorder -patient's tropes are negative, patient is chest pain free, 2D echo unremarkable patient is cleared to be discharged. Plan discussed with: Patient Date of Service: Jun 25, 2025 Billing Provider: TREVER SOL MD Common Visit Codes: [id number] INP/OBS CARE(MOD) TREVER SOL MD Jun 25, 2025 16:40
[2025-06-25 17:00] VITALS: BP 108/70; PULSE 64; RESP 20; TEMP 97.1; O2SAT 99
== END 2025-06-25 17:05 | disposition home or self-care (01) | DRG 203 ==
LOC: ER 09:55 → OVERFLOW 12:42 → TELE-WESTW 14:18
PROVIDERS: ADMIT Internal Medicine; ATTEND Internal Medicine
DX: M94.0 Chondrocostal junction syndrome [Tietze] (principal); E03.9 Hypothyroidism, unspecified; E66.01 Morbid (severe) obesity due to excess calories; I10 Essential (primary) hypertension; K21.9 Gastro-esophageal reflux disease without esophagitis; E78.5 Hyperlipidemia, unspecified; F17.210 Nicotine dependence, cigarettes, uncomplicated; Z98.891 History of uterine scar from previous surgery; Z68.41 Body mass index [BMI] 40.0-44.9, adult
CPT/HCPCS: 36415; 71045; 80048; 80061; 80307; 81001; 83036; 83735; 84439; 84443; 84484; 85025; 86803; 87340; 93005; 93306; 96374; 96375; 99291; G0378; J2405